=== PATIENT | female | born 1985 | race Caucasian/White ===

== ENCOUNTER 2020-06-06 00:51 | Emergency (ER) | payer MEDICAID ==
[~2020-06-06] VITALS: Ht 170.2 cm; Wt 90.9 kg
[~2020-06-06 00:51] MED LIST: GUAI10SY2 PO
[2020-06-06] MEDS ORDERED: cephalexin 500mg capsule PO ONE (01:20)
[2020-06-06] MEDS ORDERED: LIDOcaine 1% 30ml preserv. free vial IJ ONE (01:25)
--- NOTE | 2020-06-06 02:11 | NUR ---
RECEVIED VERBAL ORDER FROM [facility] FOR ATIVAN 1MG IM X1 DOSE NOW FOR PT ANXIETY DURING PROCEDURE
[2020-06-06] MEDS ORDERED: LORazepam 2 mg/ml vial IM ONE (02:15)
[2020-06-06] MEDS ORDERED: CEPH500C5 PO (02:42)
[2020-06-06] MEDS ORDERED: oxyCODONE/APAP 10/325mg tablet PO ONE (02:45)
[2020-06-06 03:00] VITALS: BP 103/82
[2020-06-07] MEDS ORDERED: HYDR-3965 PO (07:16)
[2020-06-07] MEDS ORDERED: ACET-1025 PO (07:16)
[2020-06-07] MEDS ORDERED: IBUP-1984 PO (07:16)
== END 2020-06-06 03:00 | disposition home or self-care (01) ==
LOC: ER 00:51
DX: S68.119A Complete traumatic metacarpophalangeal amputation of unspecified finger, initial encounter (principal); F17.210 Nicotine dependence, cigarettes, uncomplicated; Z79.899 Other long term (current) drug therapy; T14.8XXA Other injury of unspecified body region, initial encounter; X58.XXXA Exposure to other specified factors, initial encounter; Y93.9 Activity, unspecified; Y92.89 Other specified places as the place of occurrence of the external cause; Y99.8 Other external cause status
CPT/HCPCS: 12001; 73140; 96372; 99283; J2060

== ENCOUNTER 2020-06-07 06:22 | Emergency (ER) | payer MEDICAID ==
[~2020-06-07] VITALS: Ht 170.2 cm; Wt 112.0 kg
[~2020-06-07 06:22] MED LIST changes: +CEPH500C5 PO
[2020-06-07 06:24] VITALS: BP 166/84
[2020-06-07] MEDS ORDERED: acetaminophen 325mg tablet PO ONE (06:55)
[2020-06-07] MEDS ORDERED: ondansetron 4mg rapidly disintigrating tab PO ONE (06:55)
[2020-06-07] MEDS ORDERED: ibuprofen tablet 400 MG TABLET PO ONE (06:55)
[2020-06-07] MEDS ORDERED: HYDR-3965 PO (07:16)
[2020-06-07] MEDS ORDERED: ACET-1025 PO (07:16)
[2020-06-07] MEDS ORDERED: IBUP-1984 PO (07:16)
== END 2020-06-07 07:41 | disposition home or self-care (01) ==
LOC: ER 06:22
DX: S68.115D Complete traumatic metacarpophalangeal amputation of left ring finger, subsequent encounter (principal); X58.XXXD Exposure to other specified factors, subsequent encounter; Z48.00 Encounter for change or removal of nonsurgical wound dressing; Z79.899 Other long term (current) drug therapy
CPT/HCPCS: 64450; 99284

== ENCOUNTER 2020-10-05 07:07 | Emergency (ER) | payer MEDICAID ==
[~2020-10-05 07:07] MED LIST changes: -CEPH500C5 PO
[2020-10-05 07:17] VITALS: BP 131/84
[2020-10-05] MEDS ORDERED: amoxicillin 250mg capsule PO ONE (08:00)
[2020-10-05] MEDS ORDERED: DEXAMETHASONE 6 MG TABLET PO SCH (08:00)
[2020-10-05] MEDS ORDERED: AMOX500C2 PO (08:09)
== END 2020-10-05 08:23 | disposition home or self-care (01) ==
LOC: ER 07:07
DX: J02.9 Acute pharyngitis, unspecified (principal); R22.1 Localized swelling, mass and lump, neck; Z79.2 Long term (current) use of antibiotics; Z79.899 Other long term (current) drug therapy
CPT/HCPCS: 87880; 99283; J8540